=== PATIENT | female | born 1990 | race Asian ===

== ENCOUNTER 2021-10-08 16:06 | Outpatient (CLI) | payer OTHER, SELFPAY | END 2021-10-08 16:07 | disposition home or self-care (01) | PROVIDERS: Visit Provider Obstetrics & Gynecology | DX: O26.859 Spotting complicating pregnancy, unspecified trimester (principal); Z3A.00 Weeks of gestation of pregnancy not specified | CPT/HCPCS: 36415; 84702 ==

== ENCOUNTER 2022-03-10 13:32 | Outpatient (RCR) | payer OTHER, SELFPAY ==
[2022-03-10 14:18] VITALS: BP 116/66; PULSE 72
== END 2022-06-06 15:06 | disposition home or self-care (01) ==
LOC: ANHOBOP 13:32
PROVIDERS: Visit Provider Obstetrics & Gynecology
DX: O36.8120 Decreased fetal movements, second trimester, not applicable or unspecified (principal); Z3A.27 27 weeks gestation of pregnancy
CPT/HCPCS: 59025

== ENCOUNTER 2022-05-25 00:57 | Inpatient (IN) | payer OTHER, SELFPAY ==
[2022-05-25] VITALS (70 sets, daily range): BP systolic 90–161; BP diastolic 46–132; PULSE 60–276; RESP 18; TEMP 36.2–37.2; O2SAT 65–100; BMI 26.2
--- NOTE | 2022-05-25 02:44 | LDADM ---
This patient, [facility] Guero Reyes, was admitted to Labor/Delivery/Recovery 104 on 05/25/22 at 00:57. Plans for labor, pain management and were discussed with patient. Patient/family oriented to hospital policies and general routines including ID bracelet, bed and alarms, visiting hours, pain management, procedures, bathroom and other care routines, personal items, smoking policy, room service/diet and guest tray routines, security routines, and visiting hours. Patient/Family are encouraged to report perceived risks to care and to ask questions if they do not understand what they are told or what they should do. See OBIX for further documentation.
--- NOTE | 2022-05-25 02:53 | LDADM ---
This patient, [facility] Guero Reyes, was admitted to Labor/Delivery/Recovery 104 on 05/25/22 at 00:57. Plans for labor, pain management and were discussed with patient. Patient/family oriented to hospital policies and general routines including ID bracelet, bed and alarms, visiting hours, pain management, procedures, bathroom and other care routines, personal items, smoking policy, room service/diet and guest tray routines, security routines, and visiting hours. Patient/Family are encouraged to report perceived risks to care and to ask questions if they do not understand what they are told or what they should do. See OBIX for further documentation.
[2022-05-25 03:08] LABS: Basophils Percent Auto 0.3 % (0.2-1.2); Eosinophils Absolute Auto 0.1 K/mm3 (0-0.3); Eosinophils Percent Auto 0.6 % (0-4.4); Hemoglobin 13.6 g/dL (12.0-15.0); Immature Granulocyte Absolute 0.07 K/mm3 (0.00-0.031); Immature Granulocyte Percent A 0.6 % (0-0.5); Immature Platelet Fraction Pct 8.1 % (0.9-11.2); Lymphocytes Absolute Auto 1.79 K/mm3 (0.9-3.2); Mean Corpuscular Hemoglobin 30.9 pg (26-34); Mean Corpuscular Volume 90.9 fl (80-100); Mean Platelet Volume 10.9 fl (7.4-10.4); Monocytes Absolute Auto 0.8 K/mm3 (0.1-0.6); Monocytes Percent Auto 6.7 % (2.6-8.5); Neutrophils Absolute Auto 8.5 K/mm3 (1.3-6.7); Neutrophils Percent Auto 75.8 % (45.5-73.1); Platelet Count Result 232 k/mm3 (150-375); White Blood Count 11.2 K/mm3 (4.5-10.0)
[2022-05-25] MEDS: LACTATED RINGERS 1,000 ML 125 ML IV CONT ×3 (04:42→13:51)
--- NOTE | 2022-05-25 05:46 | WPDANESEPP ---
Anes - Eval Pre Procedure Procedure: labor epidural Date/Time: 05/25/22 05:46 Surgeon: dolores Preop Diagnosis: pain during labor Pre Op Diagnosis: Contractions Patient Data Age: 32 Gender: F Height: 1.57 m Weight: 65 kg Last Vital Signs Temp 36.4 C 05/25/22 04:00 Allergies Allergy/AdvReac Type Severity Reaction Status Date / Time No Known Allergies Allergy Verified 05/06/22 12:41 Laboratory Tests 05/25/22 05/25/22 05/25/22 02:59 02:59 02:59 WBC 11.2 K/mm3 H K/mm3 (4.5-10.0) RBC 4.40 M/mm3 M/mm3 (4.2-5.4) Hgb 13.6 g/dL g/dL (12.0-15.0) Hct 40.0 % % (37.0-47.0) MCV 90.9 fl fl (80-100) MCH 30.9 pg pg (26-34) MCHC 34.0 g/dl g/dl (32-36) RDW 14.0 % % (11.5-14.5) Plt Count 232 k/mm3 k/mm3 (150-375) MPV 10.9 fl H fl (7.4-10.4) Immature Gran % (Auto) 0.6 % H % (0-0.5) Neut % (Auto) 75.8 % H % (45.5-73.1) Lymph % (Auto) 16.0 % L % (18.3-44.2) [place] % (Auto) 6.7 % % (2.6-8.5) Eos % (Auto) 0.6 % % (0-4.4) Baso % (Auto) 0.3 % % (0.2-1.2) Lymph # (Auto) 1.79 K/mm3 K/mm3 (0.9-3.2) [place] # (Auto) 0.8 K/mm3 H K/mm3 (0.1-0.6) Eos # (Auto) 0.1 K/mm3 K/mm3 (0-0.3) Baso # (Auto) 0.0 K/mm3 K/mm3 (0.0-0.1) Abs Immat Gran (auto) 0.07 K/mm3 H K/mm3 (0.00-0.031) Absolute Neuts (auto) 8.5 K/mm3 H K/mm3 (1.3-6.7) Absolute Nucleated RBC 0.0 K/mm3 K/mm3 (0.0-0.012) Nucleated RBC % 0.0 % % (0.0-0.2) % Immature Plt Fraction 8.1 % % (0.9-11.2) RPR Pending Blood Type O Positive Antibody Screen Negative Patient hx anesthesia problems: none Family hx anesthesia problems: none Results Review: All pre-operative results and documents have been reviewed as part of the pre-operative evaluation. [facility] Past Medical History Medical History (Updated 05/25/22 @ 05:47 by Elsa Mcgee CRNA) IUP (intrauterine ), incidental Family History Family History (Updated 05/06/22 @ 12:34 by Leslye Rosa RN) Father Hypertension Social History Social History Smoking status: Never smoker Second hand tobacco smoke exposure: No Substance use: never Lack of Transportation: No Lack of Food: Never True Current Housing: I Have Housing Concerned About Future Housing: No Difficulty Paying Gas/Electric Bills: No Difficulty Paying for Meds: No Currently Unemployed: No Education: Bachelor's Degree Difficulty w/ Childcare or Family Care: No Spiritual care concerns: No Exam Day of Procedure 05/25/22 05:46
[2022-05-25] MEDS: OXYTOCIN 30 UNITS/NS 500 ML 30 UNITS/500 ML BAG IV CONT (08:15)
--- NOTE | 2022-05-25 13:44 | WPDOBADMIT ---
Obstetrics - Admit Note Admission Note: record reviewed. Additions to the history and/or subsequent changes in the physical findings follow. 32 y/o G1 at 38 3/7 weeks here with contractions. GBS unknown. unremarkable. Comfortable with epidural. Augmenting labor with oxytocin. AVSS NST reactive TOCO: contractions every 2-3 min ABD soft, nontender, gravid, vertex EXT nontender Cervix 7/90/0. AROM with clear fluid. A: IUP at term with labor. P: Anticipate . Continue augmentation with oxytocin.
--- NOTE | 2022-05-25 15:51 | PM.OBPRVD ---
OB - Delivery Note Procedure Delivery date: 05/25/22 Procedure: Induction method: None Delivery augmentation: Rupture of Membranes and Pitocin Delivery monitor: External FHT and External Uterine Route of delivery: Laceration Description: Perineal - 2nd Degree Delivery repair: vicryl (3-0) Specimen: Yes (cord blood) Quantitative Blood Loss (ml): 380 Anesthesia type: Epidural Disposition: PACU Complications: None Narrative: 32 y/o G1 at 38 3/7 weeks gestation who presented to the hospital with contractions. Labor was diagnosed. She received an epidural. She subsequently required oxytocin IV for labor augmentation. Amniotomy was performed with return of clear fluid. Her labor progressed and her cervix dilated completely. She pushed with good effort and delivered the infant's head to the perineum, followed by the body. The nose and mouth were bulb suctioned. After a delay, the cord was clamped and cut. The infant was handed off the field. Cord blood was collected. The placenta delivered spontaneously and was grossly normal in appearance. The usual 3 vessel cord was noted. A second degree midline perineal laceration was sustained. This was reapproximated using 3 0 Vicryl in the usual layered fashion. Excellent hemostasis resulted as did excellent reapproximation of the normal anatomy. Needle and instrument counts were correct. The patient was taken to recovery room in stable condition. The infant went to the nursery in stable condition. I was present and scrubbed for the entire delivery. Nixon Baby Date of : 05/25/22 Time of : 15:28 Weeks of gestation at delivery: 38 Infant gender: Female Weight (pounds): 6 Weight (ounces): 3 presentation: vertex position: Right Occiput Anterior Placenta delivery description: Spontaneous and Normal Configuration Cord Vessel Description: 3 Vessels and Delayed Cord Clamping score one minute: 9 score five minutes: 9
--- NOTE | 2022-05-25 15:54 | PM.OBDSVD ---
DS: Admitting Diagnosis Discharge Date 05/27/22 Admitting Diagnosis IUP at 38 3/7 weeks Labor DS: Discharge Diagnosis Discharge Diagnosis (1) (normal spontaneous vaginal delivery): Code(s): O80 - Encounter for full-term uncomplicated delivery Status: Acute OB - DS: Summary OB Procedures : None OB Procedures Intrapartum: Spontaneous Vag Delivery OB Procedures: : None Time Spent with Patient Time attestation: Total time spent providing and/or coordinating discharge services: DS: Data Data Completed and Pending Labs on day of discharge: Labs from last 24 hours 05/25/22 05/25/22 05/25/22 02:59 02:59 02:59 WBC 11.2 H RBC 4.40 Hgb 13.6 Hct 40.0 MCV 90.9 MCH 30.9 MCHC 34.0 RDW 14.0 Plt Count 232 MPV 10.9 H Immature Gran % (Auto) 0.6 H Neut % (Auto) 75.8 H Lymph % (Auto) 16.0 L [place] % (Auto) 6.7 Eos % (Auto) 0.6 Baso % (Auto) 0.3 Lymph # (Auto) 1.79 [place] # (Auto) 0.8 H Eos # (Auto) 0.1 Baso # (Auto) 0.0 Abs Immat Gran (auto) 0.07 H Absolute Neuts (auto) 8.5 H Absolute Nucleated RBC 0.0 Nucleated RBC % 0.0 % Immature Plt Fraction 8.1 RPR Pending Blood Type O Positive Antibody Screen Negative Discharge Plan Discharge Attending physician on discharge: Markell Fernando Discharging Clinician: Markell Fernando Patient Disposition: Home, Self-Care Activity: may shower and pelvic rest Diet: regular Wound Care Instructions: follow printed instructions Discharge Instructions: Call or return if temperature above 100.4? F, increased abdominal pain, increased vaginal bleeding or any new problems. Stand Alone Forms: General Discharge Information Follow-up/Referrals: Markell Fernando MD [Physician] - 6 Weeks Discharge Medications: New ibuprofen 600 mg tablet 600 mg PO Q6H PRN (Reason: cramps) Qty: 30 0RF Date of admission: 05/25/22 00:57 Primary Care Provider: PHYSICIAN,INSPECTOR TOOL Admitting Provider: Markell Fernando Attending physician on admission: Markell Fernando Condition: Stable
[2022-05-25] MEDS: OXYTOCIN 30 UNITS/NS 500 ML 30 UNITS/500 ML BAG 125 UNITS IV CONT (16:01)
[2022-05-25] MEDS: BENZOCAINE 20% AER SPR (*SP) 56 GM CAN 1 SPRAY TOPICAL (17:53)
[2022-05-25] MEDS: WITCH HAZEL 40 PADS 1 PAD TOPICAL (17:53)
--- NOTE | 2022-05-25 18:00 | PC.NURSE ---
Patient transferred to post room #291 via (W/C ). Support person present. Oriented to unit, room, information board, rooming in, admission packet and security measures. Patient verbalizes understanding.
[2022-05-25] MEDS: IBUPROFEN 600 MG TABLET PO (18:42)
[2022-05-26 04:35] VITALS: BP 97/52; PULSE 79; RESP 16; TEMP 36.2
[2022-05-26 05:11] LABS: Hemoglobin 10.3 g/dL (12.0-15.0)
[2022-05-26] MEDS: IBUPROFEN 600 MG TABLET PO ×3 (05:39→23:54)
[2022-05-26 07:15] VITALS: BP 106/58; PULSE 98; RESP 16; TEMP 36.6; O2SAT 98
[2022-05-26 08:18] LABS: Rapid Plasma Reagin Non-Reactive (NonReactive)
--- NOTE | 2022-05-26 08:50 | PM.OBPNVD ---
OB - PN: Subj Subjective Date/time seen: 05/26/22 08:50 Narrative: Pain OK. OB - PN: Obj Data Labs 05/26/22 04:40 Labs: Laboratory Results - last 24 hr 05/25/22 05/26/22 02:59 04:40 Hgb 10.3 L D Hct 31.0 L RPR Non-reactive OB - PN A/P Plan Comments: A: PPD#1, doing well. P: Routine care. Exam Psych: Other: AVSS ABD soft, nontender, fundus firm EXT nontender
[2022-05-26] MEDS: DOCUSATE SODIUM 100 MG CAPSULE PO ×2 (09:20→15:42)
[2022-05-26] MEDS: MULTIVIT/MIN/PREN/FOL AC/IRON TABLET 1 TAB PO (09:20)
[2022-05-26] MEDS: ACETAMINOPHEN 325 MG TABLET 650 MG PO (09:32)
--- NOTE | 2022-05-26 11:47 | WPDANLDPN2 ---
Anes-Prog Note L&D Date/Time: 05/26/22 11:47 Comfortable throughout: labor and delivery Neuraxial method: epidural Epidural/Spinal procedure site: clean & non-tender Neuro status: Neuro function grossly intact. Cardiovascular status: normal Respiratory status: normal Airway patency: baseline Mental status: baseline Post-Op hydration status: normal Vital Signs: Last Vital Signs Temp 97.9 F 05/26/22 07:15 Pulse 98 05/26/22 07:15 Resp 16 05/26/22 07:15 BP 106/58 L 05/26/22 07:15 Pulse Ox 98 05/26/22 07:15 O2 Del Method Room Air 05/26/22 04:35 Pain score (VAS): 0/10 I/O: Intake & Output 05/25/22 05/26/22 05/26/22 23:59 07:59 15:59 Intake Total 800 Balance 800 Post-procedural complaints: none Patient feedback: Patient satisfied with anesthetic care.
[2022-05-26 12:31] VITALS: BP 112/68; PULSE 84; RESP 16; TEMP 36.6; O2SAT 99
[2022-05-26 20:51] VITALS: BP 104/57; PULSE 76; RESP 16; TEMP 37.1; O2SAT 97
--- NOTE | 2022-05-27 07:42 | PM.DS ---
DS: Admitting Diagnosis Discharge Date 05/27/2022 Admitting Diagnosis term DS: Discharge Diagnosis Discharge Diagnosis (1) (normal spontaneous vaginal delivery): Code(s): O80 - Encounter for full-term uncomplicated delivery Status: Acute DS: Summary Hospital Course Reason for hospitalization: patient was admitted in active labor Hospital Course: patient underwent spontaneous vaginal delivery on 06/08. Hospital course unremarkable. She remained afebrile. She was up, voiding difficulty and ambulating eating regular diet and without complaints. Time Spent with Patient Time attestation: Total time spent providing and/or coordinating discharge services: Exam Const: General: cooperative, healthy appearing, comfortable and well groomed Nutritional Appearance: average body habitus Orientation/consciousness: oriented to person, oriented to place and oriented to time HENMT: Head: normal to inspection Resp: Effort & Inspection: normal respiratory effort Cardio: Rate: regular rate Rhythm: regular rhythm Heart sounds: S1 normal heart sound present and S2 normal heart sound present GI: Inspection: normal to inspection ( Fundus firm below umbilicus) DS: Data Data Completed and Pending Labs on day of discharge: Labs from last 24 hours 05/25/22 02:59 RPR Non-reactive Discharge Plan Discharge Attending physician on discharge: Markell Fernando Discharging Clinician: Markell Fernando Patient Disposition: Home, Self-Care Activity: may shower and pelvic rest Diet: regular Wound Care Instructions: follow printed instructions Discharge Instructions: Call or return if temperature above 100.4? F, increased abdominal pain, increased vaginal bleeding or any new problems. Stand Alone Forms: General Discharge Information Follow-up/Referrals: Markell Fernando MD [Physician] - 6 Weeks Discharge Medications: New ibuprofen 600 mg tablet 600 mg PO Q6H PRN (Reason: cramps) Qty: 30 0RF Date of admission: 05/25/22 00:57 Primary Care Provider: PHYSICIAN,NETWORK RELAY TESTER Admitting Provider: Markell Fernando Attending physician on admission: Markell Fernando Condition: Stable
--- NOTE | 2022-05-27 07:45 | P.PNOB_ITS ---
OB - PN: Subj Subjective Date/time seen: 05/27/22 07:45 Patient comments: no complaints and pain well controlled feeding status: exclusively breast feeding OB - PN: Obj Data Labs 05/26/22 04:40 Labs: Laboratory Results - last 24 hr 05/25/22 02:59 RPR Non-reactive OB - PN A/P Plan day: 2 Plan: routine care, discharge home and follow up 6 weeks Time Spent With Patient Time: Total time spent is greater than 50% in coordination of care (as documented) at patient's floor/unit and/or counseling patient: Time with patient: less than 15 minutes Exam Const: General: cooperative, healthy appearing and comfortable Nutritional Appearance: average body habitus Orientation/consciousness: oriented to person, oriented to place and oriented to time HENMT: Head: normal to inspection Resp: Effort & Inspection: normal respiratory effort Cardio: Rate: regular rate Rhythm: regular rhythm Heart sounds: S1 no rmal heart sound present and S2 normal heart sound present GI: Auscultation: normal bowel sounds
[2022-05-27 08:30] VITALS: BP 113/64; PULSE 76; RESP 18; TEMP 36.4; O2SAT 100
[2022-05-27] MEDS: MULTIVIT/MIN/PREN/FOL AC/IRON TABLET 1 TAB PO (10:33)
[2022-05-27] MEDS: DOCUSATE SODIUM 100 MG CAPSULE PO (10:33)
[2022-05-27] MEDS: IBUPROFEN 600 MG TABLET PO (10:34)
[2022-05-27] MEDS: ACETAMINOPHEN 325 MG TABLET 650 MG PO (14:59)
--- NOTE | 2022-05-27 16:00 | PC.NURSE ---
1500 Patient viewed the discharge video Mother & Baby Care, The First Two Weeks . Patient was given the opportunity and encouraged to ask questions. Patient verbalized understanding of information shared and has been given the mother/baby guide for home reference.
--- NOTE | 2022-05-27 16:17 | PC.NURSE ---
[id number] Introductions were made, then consulted with patient to assess needs related to . Mother led the conversation with her?plans to feed?her infant and the?experience so far. Resources provided for inpatient and outpatient services with the name written on the white board. Mother voiced understanding of information and will call if there is a request for assistance. Reported to the primary RN. [phone] Mother works well with her with encouragement and education. Encouraged understanding of the benefits of skin to skin (demonstrating unwrapping infant and placing upright on her chest), stimulating with massage touch, changing positions to encourage wakefulness, how to watch for early feeding cues, responsive feeding, feeding on demand (aiming for 8-12 times in 24 hours, about every 2-3 hours), milk production, building/maintaining a milk supply, duration of feeding, signs of adequate intake/output and how to record on the feeding sheet. Reviewed positioning and ear, shoulder, hip alignment, supporting the breast to facilitate a deep latch, asymmetrical latch (off-center), leading with the chin with a big, open, wide gape and body close to mother. latched optimally to the right and the left breast in football and cross cradle position at separate times. Mother was encouraged to latch infant optimally and deeply take care to have more than just the nipple in the 's mouth. Education given to mother of how to visualize suck/swallow ratios and listen for drinking at the breast. was able to maintain latch without discomfort to mother with majority of latches. Reviewed with father of the baby how he can help stimulate infant to actively breastfeed and how to support mother. Mother was taught how to detach infant from the breast if there's pain and encourage infant to open wider bringing asymmetrically to the breast leading with the chin. Nipple care reviewed with optimal latch and good positioning. Reviewed good handwashing when or touching the breast/nipples to prevent infection. Resources used to facilitate learning were used with the visual handouts/QR codes/ tool/mom and baby guide. Mother led the conversation with her plan to feed her so far and her ability to independently latch infant optimally without discomfort. Reminded parents to use good handwashing technique to prevent infection. Mother is feeding appropriately for growth of and understands stimulating to eat if needed. Infant has had appropriate feedings in the last 24 hours meets the outcomes for weight, output and jaundice at this time. Mother states she is confident to continue effectively breastfeed her at home, when to call for assistance and denies any additional assistance or education at this time after consult with questions answered and discussed. Reinforced understanding of milk production, transition of milk, signs of adequate intake, transition of stool, prevention/relief of engorgement, responsive watching for feeding cues, the different methods of stimulating infant to breastfeed 2-3 hours after the start of the last feeding, community resources, and when to call a provider using the resource of the mom and baby guide, business card and bonding trifold brochure. Parents voiced understanding of the education shared. Reported to the primary RN.
[2022-05-29 10:38] VITALS: BP 103/61; PULSE 79; RESP 18; TEMP 37.6; O2SAT 99
== END 2022-05-27 15:15 | disposition home or self-care (01) | DRG 807 ==
LOC: ANHLDR 15:54 → ANHOB2 18:03
PROVIDERS: Admitting Provider Obstetrics & Gynecology; Visit Provider Obstetrics & Gynecology
DX: O70.1 Second degree perineal laceration during delivery (principal); Z37.0 Single live birth; Z3A.38 38 weeks gestation of pregnancy
CPT/HCPCS: 36415; 85014; 85018; 85025; 85055; 86592; 86850; 86900; 86901; A9270; J2590; J2795; J7120

== ENCOUNTER 2022-05-28 15:25 | Outpatient (RCR) | payer OTHER, SELFPAY ==
--- NOTE | 2022-05-29 15:01 | PC.NURSE ---
In- 152 Out- 1930 Reason for visit: Weight loss with and latch issues History: mother was admitted on 05/25/22 and labor was augmented. There's no medical history. No medication with exception to non-narcotic pain medication post . History: Infant was born [birth year] vaginally at 1528 in stable condition. Bilirubin at discharge was 6.4 at 38 hours. consulted with patient to improve latch since infant was latching to the nipple only. Observations: Mother latches to the right breast and the latch appears to be appropriate. The nipple is large, long and door knob shaped. Nipple has a scab from what appears to be a crease injury. Mother is encouraged to sandwich her breast holding it to attempt to get more areola into the 's mouth rather than just the nipple. was detached from the breast to assess for weight change. was latched to the left breast using cross cradle, mother was encouraged to sandwich her breast to assist a deeper latch with the . Rare swallowing was seen with using gentle hand compression while practices . Weight determines that infant only transferred 1ml. Mother doesn't want to supplement with formula. Lactogenesis 2 is not producing yet, and colostrum is able to be expressed. Infant was spoon fed 1/2 tsp of expressed human milk. Mother wanted to attempt one more position before supplementing. was assisted to the left breast using the football positioning. With mother holding her breast with the sandwich hold, along with gentle compression, then demonstrates rare swallowing. When mother removes the sandwich hold to gently compress the breast, infant slips off the breast and starts nipple feeding. Weight determines that infant was able to transfer 1ml from the breast. Mother was educated that needs to be supplemented either with breast milk or formula. Mother desires to pump and feed the infant breast milk. Mother pumps 1.2 tsp and that is spoon fed to the infant. Reinforced education for the need to supplement infant with 35mls to 1 1/2oz every two hours or 2oz every 3 hours for weight gain, hydration, and managing jaundice. Discussed the adequate amount of food is to be eating to gain weight and grow healthy. Reinforced education regarding jaundice and parents requested the levels to be tested again. Dr. Juarez called at [phone] for an order and to report the consult. Order received for doing a TCB, then if the result is in double digits draw a bilirubin. TCB was 11.6. Serum was drawn and resulted at 12.6 which are within a range for infant's age that doesn't require medical intervention. Discussed with parents the plan to attempt to latch with a deep latch, pump to protect the milk supply and supplement until mothers milk is to volume needed for infant growth. There was a lot of encouragement, education reinforced, questions answered and teach back of when to call the ICP and how to make sure infant is fed. weight: 6lbs 3 oz (2810g) Lowest weight: 5lbs 7oz 05/28/[address] Juarez's office Last weight: Listed above Pre-feed weight: 2510g Post-feed weight: 2512g after three separate feedings with different breast and positions. Plan of Care: Parents are instructed to feed according to the guidelines for weight gain based on the calculation from page 208 of the fourth edition pocket guide for management. Follow up plans: Patient states she plans on following up with Dr. Juarez's office possibly tomorrow or within a week. F/U phone call was made. Mother is attempting to breastfeed, however; states infant is still falling asleep and not well. Parents are feeding 1/2- 3/4 of a (2oz) bottle of formula every 2 hours. is having adequate pees (yellow) and poops (brownish). Mother is pumping every 2 hours and has noticed body changes with a low temperature of 99.0F and is hopeful that
== END 2022-08-26 23:59 | disposition home or self-care (01) ==
LOC: ANHOBOP 15:25
PROVIDERS: Visit Provider Pediatrics
DX: Z39.1 Encounter for care and examination of lactating mother (principal)
CPT/HCPCS: 99215; G0463